=== PATIENT | male | born 1940 | race Caucasian/White ===

== ENCOUNTER 2017-08-29 22:46 | Emergency (ER) | payer OTHER ==
[2016-07-24 01:20] VITALS: BMI 33.3
[~2017-08-29 22:46] MED LIST: ALDACTONE100 MG PO; EFFEXOR75 MG PO; ENULOSE10 G/15 ML PO; FUROSEMIDE40 MG PO; INDERAL10 MG PO; KLOR-CON 1010 MEQ PO; TRAZODONE HCL150 MG PO
[2017-08-29 23:13] LABS: BASOPHILS 0.2 % (0-2); EOSINOPHILS 2.2 % (0-7); HEMATOCRIT 42.1 % (42.0-54.0); HEMOGLOBIN 15.1 g/dL (13.5-17.5); IMMATURE GRANULOCYTES 0.2 % (0-5); LYMPHOCYTES 12.8 % (15-50); MCHC 35.9 g/dL (31.0-37.0); MCV 100.2 fL (80.0-100.0); MONOCYTES 6.8 % (2-11); NEUTROPHILS 77.8 % (40-80); PLATELET COUNT 93 10x3/uL (130-400); RDW 13.2 % (11.5-14.5); WBC 4.5 10x3/uL (4.8-10.8)
[2017-08-29 23:28] LABS: ALBUMIN 2.7 g/dL (3.4-5.0); ALKALINE PHOSPHATASE 90 U/L (46-116); ALT (SGPT) 19 U/L (10-68); BILIRUBIN - TOTAL 0.95 mg/dL (0.2-1.3); CALC OSMOLALITY 271 mosm/kg (275-300); CALCIUM 8.3 mg/dL (8.5-10.1); CARBON DIOXIDE 29.4 mmol/L (21.0-32.0); CHLORIDE - SERUM 98 mmol/L (98-107); GLUCOSE 139 mg/dL (74-106); POTASSIUM - SERUM 4.2 mmol/L (3.5-5.1); PROTEIN - SERUM 6.1 g/dL (6.4-8.2); SODIUM 135 mmol/L (136-145); UREA NITROGEN 12 mg/dL (7-18); eGFR NON AFRICAN AMERICAN 77 mL/min (90-120)
[2017-08-29 23:39] LABS: AMYLASE - SERUM 33 U/L (25-115); CHOL - HDL RATIO 3.3 ratio (2.3-4.9); CHOLESTEROL, TOTAL 154 mg/dL (0-200); CKMB 0.8 U/L (0.0-3.6); CREATINE KINASE 55 UL (21-232); HDL CHOLESTEROL 47 mg/dL (32-96); LDL CHOLESTEROL 79 mg/dL (0-100); LDL-HDL RATIO 1.7 ratio (1.5-3.5); LIPASE 149 U/L (73-393); PRO BNP 188 pg/mL (0-450); TRIGLYCERIDE 140 mg/dL (30-200)
[2017-08-29 23:40] LABS: TROPONIN-I < 0.017 ng/mL (0.000-0.060)
== END 2017-08-30 02:52 | disposition home or self-care (01) ==
LOC: D.ER 22:46
PROVIDERS: Family Medicine
DX: R07.9 Chest pain, unspecified (principal); R19.8 Other specified symptoms and signs involving the digestive system and abdomen; I10 Essential (primary) hypertension